=== PATIENT | male | born 1945 | race Caucasian/White ===

== ENCOUNTER 2017-10-10 09:53 | Day surgery (SDC) | payer MEDICARE, OTHER ==
[2017-10-10] MEDS ORDERED: LIDOCAINE 2% MDV (20MG/ML) 20ML VIAL IV ONE (09:54)
[2017-10-10] MEDS ORDERED: PROPOFOL 10 MG/ML VIAL IV ONE (09:54)
[2017-10-10] MEDS ORDERED: MIDAZOLAM HCL 2MG/2ML VIAL IV ONE (09:54)
--- NOTE | 2017-10-11 12:50 | Operative Note ---
Dictated by Dr. Ken Kahn for Dr. Massey DATE OF SURGERY: 10/10/2017 PREOPERATIVE DIAGNOSIS: History of colon polyps. POSTOPERATIVE DIAGNOSES: 1. Moderate montes de oca diverticulosis. 2. Otherwise normal colonoscopy to cecum. 3. Small internal hemorrhoids. OPERATION: COLONOSCOPY. ENDOSCOPIST: Fabricio Massey DO EMERGENCY VETERINARY ASSISTANT: Dr. Ken Kahn ANESTHESIA: Anesthesia as performed by the anesthesia department. COMPLICATIONS: None. INDICATIONS FOR PROCEDURE: A 72-year-old male with history of colon polyp with last colonoscopy in 2009 presented for repeat colonoscopy. The patient denies any weight loss, GI bleeding, family history of colon cancer, or changes in bowel habits. PROCEDURE: Procedure was thoroughly explained to the patient including risks, benefits, and alternatives. The patient had opportunity to have questions answered. Patient agreed to procedure and signed written informed consent. The patient was brought to the endoscopy suite and was placed on the left lateral decubitus position. Anesthesia was begun and procedure begun with introduction of a well-lubricated Olympus [id number] colonoscope to rectum and then was advanced into cecum where ileocecal valve and appendiceal orifice were identified. Overall quality of the prep was good. Scope was withdrawn slowly from cecum, ascending colon, transverse colon, descending colon, sigmoid colon, and rectum. There appeared to be moderate montes de oca diverticulosis worse on the left side. No evidence of colon polyps, mass, or any abnormalities were seen. In the rectum, scope was retroflexed, which appeared to show small hemorrhoids. Scope was placed back into neutral position and was removed completely. Patient tolerated the procedure well without any complications. RECOMMENDATION: 1. High-fiber diet. 2. Repeat colonoscopy in 5 years given history of colon polyps. As always, thank you for allowing me to participate in the care of your patient. CC: Dr. Sebas NIXON
== END 2017-10-10 12:00 | disposition home or self-care (01) ==
LOC: HOP 09:53
PROVIDERS: ATTEND Internal Medicine Gastroenterology
DX: Z12.11 Encounter for screening for malignant neoplasm of colon (principal); K57.30 Diverticulosis of large intestine without perforation or abscess without bleeding; K64.8 Other hemorrhoids; Z86.010 Personal history of colon polyps
CPT/HCPCS: 00812; G0121